=== PATIENT | male | born 2000 | race African-American/Black ===

== ENCOUNTER 2025-05-12 17:00 | Emergency (ER) | payer BC, SELFPAY ==
--- NOTE | ~2025-05-12 | XR_ITS ---
XR hand LT min 3V INDICATION: crush injury, Lt. hand digits 2-4 pain/ posterior laceration . COMPARISON: None. FINDINGS: Frontal, lateral, and oblique views of the left hand demonstrate transverse nondisplaced fracture of the proximal diaphysis of the middle phalanx of the little finger . IMPRESSION: Acute nondisplaced fracture of the proximal diaphysis of the middle phalanx of the middle finger. Reviewed, dictated and finalized at location S. TIC PUMP OPERATOR
[2025-05-12 17:00] VITALS: BP 142/88; PULSE 68; RESP 18; TEMP 36.6; O2SAT 100
--- NOTE | 2025-05-12 17:04 | ED.UPPEXIN ---
HPI - Extremity Injury (Upper) General Chief Complaint: Wound/Laceration Stated Complaint: left hand crush injury Time Seen by Provider: 05/12/25 17:03 Source: patient Mode of arrival: ambulatory Limitations: no limitations History of Present Illness HPI narrative: Patient is a 24-year-old male with a left hand injury prior to arrival. He had a crush injury from a truck back heavy gate dropping on his hand. He has pain in the left hand. There are small abrasions/lacerations. Tetanus shot up-to-date this year. MD complaint: injury to: left, hand and finger (Middle) Onset (ago): minute(s) (Thirty) Other injuries: none Place: work and outdoors Severity: moderate Severity scale (1-10): 4 Relieving factors: cold therapy and rest Exacerbating factors: movement of extremity Context: direct blow, crush and injury Associated symptoms: denies other symptoms Treatments prior to arrival: bandage Related Data Allergies Allergy/AdvReac Type Severity Reaction Status Date / Time amoxicillin Allergy Mild itching Verified 05/12/25 17:59 Review of Systems Review of Systems: All systems reviewed & are unremarkable except as noted in HPI and below Constitutional: Constitutional: Reports no additional constitutional complaints Eyes: Eyes: Reports no additional eye complaints ENT: Reports system reviewed and no additional complaints, except as documented Cardiovascular: Cardiovascular: Reports no additional cardiovascular complaints Respiratory: Respiratory: Reports no additional respiratory complaints Gastrointestinal: Gastrointestinal: Reports no additional gastrointestinal complaints Genitourinary: Genitourinary: Reports no additional male genitourinary complaints Musculoskeletal: Musculoskeletal: Reports no additional musculoskeletal complaints Integumentary/Breasts: Skin/Breast: Reports system reviewed and no additional complaints, except as docu Neurologic: Reports system reviewed and no additional complaints, except as documented Psychiatric: Psychiatric: Reports no additional psychiatric complaints Endocrine: Endocrine: Reports no additional endocrine complaints Hematologic/Lymphatic: Hematologic/Lymphatic: Reports no additional hematologic/lymphatic complaints Allergic/Immunologic: Allergic/Immunologic: Reports no additional allergic/immunologic complaints Exam Const: General: healthy appearing Nutritional Appearance: well nourished Orientation/consciousness: patient oriented x3 HENMT: Head: normal to inspection Ears: external ears normal Face/Nose/Sinus: Normal external nose present Eyes: Conjunctivae: conjunctivae normal Pupils: Equal, round and reactive pupils present EOM: EOMs intact bilaterally Neck: Neck: normal visual inspection Chest: Chest palpation & inspection: normal inspection of the chest Resp: Effort & Inspection: normal respiratory effort and not labored Auscultation: clear to auscultation bilaterally and no crackles Cardio: Rate: regular rate Rhythm: regular rhythm Heart sounds: no murmurs GI: Inspection: non-distended GI Palp: Yes Soft to palpation and No Tenderness to palpation present (GI) Auscultation: normal bowel sounds : General: Yes bladder normal to palpation Back/Spine/Pelvis: Back: no CVA tenderness Skin: General skin exam: normal color Rashes: no rashes Wounds: wound noted Other: Left hand middle finger and ring finger are slightly swollen and 0.5 cm linear laceration superficially with small flaps (nothing that needs repair except adhesive); middle finger has a linear laceration superficially on each side of the finger at 0.5 cm Neuro: General: patient oriented x3, moves all extremities and no meningeal signs Cranial nerves: Yes Nystagmus not present Speech: normal speech Gait exam (Neuro): Normal gait present Extrem: General: normal to inspection, no clubbing, cyanosis or edema and no pedal edema Psych: Mental Status: mental status grossly normal Affect: normal affect Attitude: cooperative Course Vital Signs Vital signs: Vital Signs Temperature 36.6 C 05/12/25 17:00 Pulse Rate 68 05/12/25 17:00 Respiratory Rate 18 05/12/25 17:00 Blood Pressure 142/88 H 05/12/25 17:00 Pulse Oximetry 100 05/12/25 17:00 Oxygen Delivery Room Air 05/12/25 17:00 Temperature 36.6 C 05/12/25 17:00 Pulse Rate 68 05/12/25 17:00 Respiratory Rate 18 05/12/25 17:00 Blood Pressure 142/88 H 05/12/25 17:00 Pulse Oximetry 100 05/12/25 17:00 Oxygen Delivery Room Air 05/12/25 17:00 Procedures Other Procedure Procedure 1: Other Procedure: Left hand middle finger and ring finger have superficial linear laceration 0.5 cm (middle finger has 1 on both sides of the finger at 0.5 cm): Area was cleaned with chlorhexidine, adhesive glue placed on top of both lesions, patient tolerated procedure well and no complications MDM - Extremity Injury (Upper) MDM Narrative Medical decision making narrative: Patient is a 24-year-old male with a left hand crush injury prior to arrival. X-ray. Adhesive. Immobilizer of finger with fracture. No antibiotics needed as there is closure with the adhesive. No signs of infection. No abscesses. And this is not an open fracture. Imaging Data Attestation: I personally reviewed and interpreted this imaging study as follows: Radiologist's impression: Left hand x-ray shows Frontal, lateral and oblique views of the left hand demonstrate transverse nondisplaced fracture of the proximal diaphysis of the middle phalanx of the middle finger. No dislocation. Discharge Plan Discharge Clinical Impression: Crushing injury of finger with hand, left, Fracture of finger of left hand Patient Disposition: Home Condition: Stable Instructions: Finger Fracture (ED), Crush Injury (ED) Additional Instructions: Please follow-up with the primary doctor in the next week. Please discuss with the primary doctor about seeing an orthopedic surgeon that works on hands for follow-up. Patient Language: Portuguese Follow-up/Referrals: UNKNOWN,DOCTOR [Non-Staff] Time of Disposition: 17:58
[2025-05-12 18:01] VITALS: BP 140/80; PULSE 68; RESP 20; O2SAT 95
--- OUTSIDE RECORDS SUMMARY | 2025-05-12 20:21 | XMS_ITS | Clinical Summary ---
Author Organization [facility] Address [address] [place] [id number] Care Team Providers Care Point Of Care Specialist Name Role Phone Pcp, No Primary Care Provider Unavailabl e Allergies Active Allergy Reactions Criticality Noted Date Comments Amoxicillin SWELLING 10/11/2020 Medications ondansetron (Zofran ODT) [address] 1 tablet onto the tongue every 8 hours as needed for Nausea. 10 tablet Active Social History Tobacco Use Types Packs/Day Years Used Date Smoking Tobacco: Never Assessed Inadequate Housing Answer Date Recorded Social Determinants: Housing (Overall Score Help er) 0 10/11/2020 Sex and Gender Information Value Date Recorded Sex Assigned at Not on file Legal Sex Male 4:25 PM CDT Gender Identity Not on file Sexual Orientation Not on file Obstetrics History Last Filed Vital Signs Vital Sign Reading Time Taken Comments Blood Pressure 117/80 12/08/2021 10:40 PM CDT Pulse 67 12/08/2021 10:40 PM CDT Temperature 36.8 C (98.2 F) 12/08/2021 10:40 PM CDT Respiratory Rate 20 12/08/2021 10:40 PM CDT Oxygen Saturation 100% 12/08/2021 10:40 PM CDT Inhaled Oxygen Concentration - - Weight - - Height - - Body Mass Index - - Plan of Treatment Health Maintenance Due Date Last Done Comments Varicella Vaccine (2 of 2 - 2-dose childhood series) 2003 12/07/2002 Depression Screening 2011 HPV Vaccine (2 - Male 3-dose series) 12/26/2017 11/28/2017 DTaP/Tdap/Td Vaccine (7 - Td or Tdap) 12/19/2023 12/18/2013, 10/23/2003, 12/07/2002, Additional history exists COVID-19 Vaccine ( season) 2025 Influenza Vaccine (#1) 2025 05/17/2007, 2006 Pneumococcal Vaccine 0-49 Aged Out 09/02/2000, No longer eligible based on patient's age to complete this topic Hepatitis B Vaccine Completed 12/07/2002, 02/25/2000, 1999 Hepatitis A Vaccine Aged Out No longe r eligible based on patient's age to complete this topic Meningococcal Serogroup B Vaccine Aged Out No longer eligible based on patient's age to complete this topic Meningococcal Vaccine Aged Out No leonides brodie eligible based on patient's age to complete this topic Insurance [facility] [address] [place] [employer] Care Teams Point Of Care Specialist Relationship Specialty Start Date End Date Pcp, No PCP - General 10/11/20
--- OUTSIDE RECORDS SUMMARY | 2025-05-12 20:21 | XMS_ITS | Clinical Summary ---
Author Organization [facility] Address [address] [facility] [place] [address] Care Team Providers Care Label Stamper Name Role Phone Unavailable Primary Care Provider Unavailabl e Allergies Active Allergy Reactions Criticality Noted Date Comments Amoxicillin Swelling 11/26/2023 Medications No known medications Encounters Date Type Department Care Team Description 03/09/2025 Telephone [facility] [address] [place] [address], [place] [id number] Paula Ricketts 03/08/2025 1:27 AM CDT - 03/08/2025 2:23 AM CDT Emergency [facility] Emergency Dept [address] [place] [address] Encounter for assessment of STD exposure (Primary Dx) Discharge Disposition: Home or Self Care 03/07/2025 Travel from Last 3 Months Social History Tobacco Use Types Packs/Day Years Used Date Smoking Tobacco: Some Days Cigarettes Cigars Smokeless Tobacco: Never Tobacco Cessation:Ready to Q uit: Not Asked; Counseling Given: Not Answered Alcohol Use Standard Drinks/Week Comments Yes 0 (1 standard drink = 0.6 oz pur e alcohol) Sex and Gender Information Value Date Recorded Sex Assigned at Not on file Legal Sex Male 11:45 AM CDT Gender Identity Not on file Sexual Orientation Not on file Last Filed Vital Signs Vital Sign Reading Time Taken Comments Blood Pressure 125/73 03/08/2025 2:18 AM CDT Pulse 72 03/08/2025 2:18 AM CDT Temperature 36.7 C (98.1 F) 03/07/2025 11:46 PM CDT Respiratory Rate 16 03/08/2025 2:18 AM CDT Oxygen Saturation 100% 03/08/2025 2:18 AM CDT Inhaled Oxygen Concentration - - Weight 97.3 kg (214 lb 9.6 oz) 03/07/2025 11:39 PM CDT Height 177.8 cm (5' 10) 03/07/2025 11:39 PM CDT Body Mass Index 30.79 03/07/2025 11:39 PM CDT Plan of Treatment Health Maintenance Due Date Last Done Comments MMR Vaccines (1 of 1 - Stand armaan series) 10/16/2000 Varicella Vaccines (1 of 2 - 13+ 2-dose series) 10/16/2012 HPV Vaccines (1 - Male 3-dos e series) 10/16/2014 HEPATITIS B VACCINES (1 of 3 - 19+ 3-dose series) 10/16/2018 Pneumococcal Vaccine: Pediat rics (0 to 5 Years) and At-Risk Patients (6 to 49 Years) (1 of 2 - PCV) 10/16/2018 DTaP/Tdap/Td Vaccines (2 - T d or Tdap) 12/19/2023 12/18/2013 COVID-19 Vaccine (1 - 2024-2 6 season) 2025 INFLUENZA VACCINE 02/27/2025 ZOSTER VACCINES (1 of 2) 10/16/2049 RSV 60+ (1 - 1-dose 75+ series) 10/16/2074 HIB VACCINES Aged Out No longer eligi ble based on patient's age to complete this topic Hepatitis A Vaccines Aged Out No long er eligible based on patient's age to complete this topic IPV VACCINES Aged Out No longer eligi ble based on patient's age to complete this topic Meningococcal B Vaccine Aged Out No l onger eligible based on patient's age to complete this topic Meningococcal Vaccine Aged Out No leonides brodie eligible based on patient's age to complete this topic RSV < 20 Months Aged Out No longer el igible based on patient's age to complete this topic Rotavirus Vaccines Aged Out No longer eligible based on patient's age to complete this topic Procedures Procedure Name Priority Date/Time Associated Diagnosis Comments URINALYSIS WITH MICROSCOPIC REFLEX TO CULTURE Routine 03/08/2025 1:50 AM CDT CHLAMYDIA/ GONOCOCCUS PCR, URINE STAT 03/08/2025 1:50 AM CDT from Last 3 Months Results * CHLAMYDIA/ GONOCOCCUS PCR, URINE (03/08/2025 1:50 AM CDT) CHLAMYDIA TRACHOMATIS PCR, URINE Negative Negative 03/08/2025 12:56 PM [facility] Comment: Culture remains the preferred method for genital and extragenital sites for adolescents <14 years of age. NEISSERIA GONORRHOEAE PCR, URINE Negative Negative 03/08/2025 12:56 PM [facility] Comment: Culture remains the preferred method for genital and extragenital sites for adolescents <14 years of age. Urine URINE SPECIMEN / Unknown Unknown / -0.01 mL 03/08/2025 1:50 AM CDT 03/08/2025 1:52 AM CDT Yohannes MORGAN MICROBIOLOGY - GENERAL ORDERA BLES Final Result [address] [place] [address] [phone] [place] [address] [place] [address] * (ABNORMAL) Urinalysis with microscopic reflex to culture (03/08/2025 1:50 AM CDT) Type Clean Catch 03/08/2025 2:10 AM [facility] Color Yellow YELLOW 03/08/2025 2:10 AM [facility] Appearance Clear CLEAR 03/08/2025 2:10 AM [facility] Specific [place] >1.035(H) 1.005 - 1.030 03/08/2025 2:10 AM [facility] pH 6.0 5.0 - 8.0 03/08/2025 2:10 AM [facility] Protein Trace(A) NEGATIVE mg/dL 03/08/2025 2:10 AM [facility] Glucose Negative NEGATIVE mg/dL 03/08/2025 2:10 AM [facility] Ketones Trace(A) NEGATIVE mg/dL 03/08/2025 2:10 AM [facility] Bililrubin Negative NEGATIVE 03/08/2025 2:10 AM [facility] Blood Negative NEGATIVE 03/08/2025 2:10 AM [facility] Nitrites Negative NEGATIVE 03/08/2025 2:10 AM [facility] Urobilinogen 1.0(A) NORMAL mg/dL 03/08/2025 2:10 AM [facility] WBC Esterase Small(A) NEGATIVE 03/08/2025 2:10 AM [facility] RBC 2 0 - 3 /[HPF] 03/08/2025 2:10 AM [facility] WBC 61(H) 0 - 3 /[HPF] 03/08/2025 2:10 AM [facility] Epithelial Cells 1 0 - 5 /[HPF] 03/08/2025 2:10 AM [facility] Hyaline Casts 4(H) 0 - 3 /[LPF] 03/08/2025 2:10 AM [facility] Bacteria Negative NEGATIVE-TR CARMELO /[HPF] 03/08/2025 2:10 AM [facility] Urine Culture Reflex Not Indicated 03/08/2025 2:10 AM [facility] Comment: Urine Culture NOT Indicated based on the outcome of testing of reflex criteria. Urine URINARY BLADDER STRUCTURE / Unknown Unknown / -0.01 mL 03/08/2025 1:50 AM CDT 03/08/2025 1:52 AM [facility] Yohannes MORGAN URINE ORDERABLES Final Result Performing Organization Address [facility]/State/ZIP Co de Phone Number [address] [place] [address] [place] [address] [place] [address] from Last 3 Months Insurance [facility]
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
== END 2025-05-12 18:01 | disposition home or self-care (01) ==
PROVIDERS: Emergency Provider Emergency Medicine; Referring Provider Family Medicine
DX: S62.613A Displaced fracture of proximal phalanx of left middle finger, initial encounter for closed fracture (principal); S61.412A Laceration without foreign body of left hand, initial encounter; W22.8XXA Striking against or struck by other objects, initial encounter
CPT/HCPCS: 12001; 29130; 73130; 99284